=== PATIENT | female | born 1970 | race Caucasian/White ===

== ENCOUNTER 2023-07-27 06:36 | Day surgery (SDC) | payer BC, SELFPAY ==
--- NOTE | 2023-07-26 14:07 | PM.HPGS ---
History of Present Illness History of Present Illness Consent: Risks, benefits, and alternatives have been discussed and questions answered. Patient agrees to proceed with procedure. Chief complaint: Neoplasm screening Narrative: Roxi Hare is a 52 year old female who is referred for colon cancer screening. Review of Systems Review of Systems: All systems reviewed & are unremarkable except as noted in HPI and below PMFSH Past Medical History Medical History Anxiety Social History Social History Smoking status: Current some day smoker Additional smoking assessment comments: 5 per week socially Alcohol intake: current Drinks per week: 2 Meds Home Medications and Allergies Home Medications Medication Instructions Recorded Confirmed Type lorazepam 0.5 mg tablet 0.5 mg PO DIRECTED 07/16/23 07/27/23 History Allergies Allergy/AdvReac Type Severity Reaction Status Date / Time No Known Allergies Allergy Verified 07/27/23 07:14 Exam Const: General: alert Orientation/consciousness: patient oriented x3 Resp: Auscultation: clear to auscultation bilaterally Cardio: Rhythm: regular rhythm GI: GI Palp: Yes Soft to palpation and No Tenderness to palpation present (GI) Neuro: General: patient oriented x3 Assessment and Plan Assessment and plan (1) Colon cancer screening: Code(s): Z12.11 - Encounter for screening for malignant neoplasm of colon Status: Acute Assessment and Plan: Colonoscopy with possible biopsy or polypectomy or cautery or injection of substances.
[2023-07-27 07:19] VITALS: BMI 19.2
[2023-07-27 07:33] VITALS: BP 97/69; PULSE 88; RESP 18; TEMP 37.2; O2SAT 100
[2023-07-27] MEDS: LACTATED RINGERS 1,000 ML 150 ML IV CONT (07:35)
--- NOTE | 2023-07-27 07:36 | P.PNAN_ITS ---
Anes - Initial Pre Proc Eval Procedure: Operation Date: 07/27/23 08:30 Proposed Procedures p Screening Colonoscopy - Misael Burr MD Date/Time: 07/27/23 07:36 Surgeon: Misael Burr MD Pre Op Diagnosis: Neoplasm screening Patient Data Age: 52 Gender: F Height: 1.65 m Weight: 52.4 kg Last Vital Signs Temp 37.2 C 07/27/23 07:33 Pulse 88 07/27/23 07:33 Resp 18 07/27/23 07:33 BP 97/69 L 07/27/23 07:33 Pulse Ox 100 07/27/23 07:33 O2 Del Method Room Air 07/27/23 07:33 Allergies Allergy/AdvReac Type Severity Reaction Status Date / Time No Known Allergies Allergy Verified 07/27/23 07:14 Home Medications Medication Instructions Recorded Confirmed Type lorazepam 0.5 mg tablet 0.5 mg PO DIRECTED 07/16/23 07/27/23 History Patient hx anesthesia problems: none Family hx anesthesia problems: none Results Review: All pre-operative results and documents have been reviewed as part of the pre-operative evaluation. [facility] Past Medical History Medical History (Updated 07/27/23 @ 07:36 by Hollis Austin MD) Anxiety Social History Social History Smoking status: Current some day smoker Additional smoking assessment comments: 5 per week socially Alcohol intake: current Drinks per week: 2 Anes - Eval Final PreProcedure Day of Procedure 07/27/23 07:36 Patient weight: normal Heart: regular rate and rhythm Lungs: clear to auscultation Airway: Mallampati scale class II Neurological: alert and oriented Last oral intake: >/= 8 hours ASA classification: II Anesthetic plan: proceed Results Review: All pre-operative results and documents have been reviewed as part of the pre- operative evaluation. Informed Consent: The patient's anesthetic plan and its attendant risks and benefits were discussed with the patient/family/POA. Questions were solicited and answers provided to the satisfaction of the patient/family/POA.
[2023-07-27 08:45] VITALS: BP 81/57; PULSE 69; RESP 16; O2SAT 98
[2023-07-27 08:55] VITALS: BP 89/59; PULSE 68; RESP 15; O2SAT 100
--- NOTE | 2023-07-27 09:02 | WPDANESPN ---
Anes - Prog Note Post-Op Date/Time: 07/27/23 09:02 Cardiovascular status: normal Respiratory status: normal Airway patency: baseline Mental status: baseline Post-Op hydration status: normal Vital Signs: Last Vital Signs Temp 37.2 C 07/27/23 07:33 Pulse 88 07/27/23 07:33 Resp 18 07/27/23 07:33 BP 97/69 L 07/27/23 07:33 Pulse Ox 100 07/27/23 07:33 O2 Del Method Room Air 07/27/23 07:33 Pain Score (VAS): 0/10 I/O: Intake & Output 07/26/23 07/27/23 07/27/23 23:59 07:59 15:59 Intake Total 400 Balance 400 Patient Feedback: Patient satisfied with anesthetic care.
[2023-07-27 09:05] VITALS: BP 99/75; PULSE 62; RESP 14; O2SAT 100
== END 2023-07-27 09:19 | disposition home or self-care (01) ==
PROVIDERS: Visit Provider Internal Medicine Gastroenterology
PROC: 0DJD8ZZ Inspection of Lower Intestinal Tract, Via Natural or Artificial Opening Endoscopic (ICD-10-PCS; CPT 45378; principal; 2023-07-27 08:30)
DX: Z12.11 Encounter for screening for malignant neoplasm of colon (principal); K57.30 Diverticulosis of large intestine without perforation or abscess without bleeding; K64.8 Other hemorrhoids
CPT/HCPCS: 45378